=== PATIENT | male | born 2000 | race Caucasian/White ===

== ENCOUNTER 2022-07-24 09:06 | Emergency (ER) | payer OTHER ==
[2022-07-24] MEDS ORDERED: cefTRIAXone 500 MG in Lidocaine 1% 1 ML IM ONE (09:32)
[2022-07-24] MEDS ORDERED: Doxycycline 100 MG Cap PO ONE (09:33)
[2022-07-24 10:49] LABS: C. TRACHOMATIS BY PCR DETECTED; N. GONORRHOEAE BY PCR NOT DETECTED
== END 2022-07-24 10:38 | disposition home or self-care (01) ==
LOC: MW.ED 09:06
DX: A64 Unspecified sexually transmitted disease (principal)
CPT/HCPCS: 36415; 86592; 87491; 87591; 96372; 99284; A9270; J0696; J3490